=== PATIENT | male | born 1980 | race Two or more races ===

== ENCOUNTER 2024-11-12 06:10 | Emergency (ER) | payer MEDICAID, OTHER ==
[~2024-11-12] VITALS: Ht 172.7 cm; Wt 125.4 kg
[2024-11-12] MEDS ORDERED: HYDR50TA69 PO (06:41)
[2024-11-12] MEDS ORDERED: PRED20TA2 PO (06:41)
[2024-11-12] MEDS: methylPREDNISolone SOD SUCC 125 MG/2 ML VL IM ONE (06:47)
--- NOTE | 2024-11-12 06:48 | ED.PDOC ---
HPI Allergic reaction HPI Comments A 43 YEAR-OLD MALE, WITH A PMHX OF DIVERTICULITIS, PRESENTS TO THE ED WITH A CHIEF COMPLAINT OF RASH TO THE ENTIRE BODY WITH ASSOCIATED ITCHINESS OF 1.5-2 MONTHS. PATIENT REPORTS GOING TO A LOCAL CLINIC FOR DIVERTICULITIS MEDICATION, WITH RASH ONSET SINCE. PATIENT REPORTS RASH WORSENING OF X2 WEEKS AGO AFTER GETTING STEROID INJECTIONS. PATIENT HAS NO FURTHER COMPLAINTS AT THIS TIME AND OTHERWISE DENIES FEVER, CHILLS, HEADACHE, OR N/V/D. PATIENT IS ALERT, ORIENTED X 4, AND HAS STEADY GAIT. Chief Complaint: Rash Time Seen by MD: 06:35 Reviewed Notes: Nurses Notes, Medications, Allergies Allergies: Coded Allergies: Amoxicillin (Verified Allergy, Unknown, 11/12/24) Clavulanic Acid (Verified Allergy, Unknown, 11/12/24) Home Meds Active Scripts Hydroxyzine Hcl (Hydroxyzine Hcl) 50 Mg Tab, 1 TAB PO BID, #30 TAB Prov:CIELO PENA 11/12/24 Prednisone (Prednisone) 20 Mg Tab, 60 MG PO DAILY, #24 TAB Prov:CIELO PENA 11/12/24 Information Source: Patient Mode of Arrival: Ambulatory Severity: Moderate Rash: Moderate SOB: None Difficulty swallowing: None Pruritus: Moderate Timing: Days, Weeks Duration: Since onset Prehospital treatment: None Location: Abdomen, Arm, Back, Buttock, Chest, Generalized, Leg, Other (GROIN ) Modyifying Factors: Not Used Associated Sign and Symptoms: None Past Medical History Past Medical History (Other): DIVERTICULITIS Surgical History: Denies all surgeries Family History Family History: Reviewed,noncontributory to illness, No family hx of Cancer, No family hx of DM, No family hx of Heart mehdi, No family hx of HTN, No family hx ofKidney mehdi, No family hx of Liver mehdi, No family hx of Lung mehdi, No family hx of Stroke Social History Smoker: Non-Smoker Alcohol: Denies ETOH Use Drugs: Denies Drug Use Lives In: Home Constitutional: denies: chills, diaphoresis, fatigue, fever, malaise, sweats, weakness, others EENTM: denies: blurred vision, double vision, ear bleeding, ear discharge, ear drainage, ear pain, ear ringing, eye pain, eye redness, hearing loss, mouth pain, mouth swelling, nasal discharge, nose bleeding, nose congestion, nose pain, photophobia, tearing, throat pain, throat swelling, voice changes, others Respiratory: denies: cough, hemoptysis, orthopnea, SOB at rest, shortness of breath, SOB with excertion, stridor, wheezing, others Cardiovascular: denies: chest pain, dizzy spells, diaphoresis, Dyspnea on exertion, edema, irregular heart beat, left arm pain, lightheadedness, palpitations, PND, syncope, others Gastrointestinal: denies: abdomen distended, abdominal pain, blood streaked bowels, constipated, diarrhea, dysphagia, difficulty swallowing, hematemesis, melena, nausea, poor appetite, poor fluid intake, rectal bleeding, rectal pain, vomiting, others Genitourinary: denies: burning, dysuria, flank pain, frequency, hematuria, incontinence, penile discharge, penile sore, pain, testicle pain, testicle sw elling, urgency, others Neurological: denies: dizziness, fainting, headache, left sided numbness, left sided weakness, numbness, paresthesia, pre-existing deficit, right sided numbness, right sided weakness, seizure, speech problems, tingling, tremors, weakness, others Musculoskeletal: denies: back pain, gout, joint pain, joint swelling, muscle pain, muscle stiffness, neck pain, others Integumetry: reports: rash; denies: bruises, change in color, change in hair/nails, dryness, laceration, lesions, lumps, wounds, others Allergic/Immunocompromised: reports: Hives, Itching, others (RASH ); denies: Difficulty Healing, Frequent Infections Hematologic/Lymphatic: denies: anemia, blood clots, easy bleeding, easy bruising, swollen glands, others Endocrine: denies: excessive hunger, excessive sweating, excessive thirst, excessive urination, flushing, intolerance to cold, intolerance to heat, unexplained weight gain, unexplained weight loss, others Psychiatric: denies: anxiety, bipolar disorder, depression, hopeless, panic disorder, schizophrenia, sleepless, suicidal, others All Other Systems: Reviewed and Negative Physical Exam General Appearance: No Apparent Distress, Obese HEENT: Normal ENT Inspection, PERRL/EOMI, Pharynx Normal, TMs Normal Neck: Full Range of Motion, Non-Tender, Normal, Normal Inspection Respiratory: Chest Non-Tender, Lungs Clear, No Accessory Muscle Use, No Respiratory Distress, Normal Breath Sounds Cardiovascular: No Edema, No JVD, No Murmur, No Gallop, Normal Peripheral Pulses, Regular Rate/Rhythm Breast Exam: Deferred Gastrointestinal: No Organomegaly, Non Tender, No Pulsatile Mass, Normal Bowel Sounds, Soft Genitalia: Deferred Pelvic: Deferred Rectal: Deferred Extremities: No calf tenderness, Normal capillary refill, Normal inspection, Normal range of motion, Non-tender, No pedal edema Musculoskeletal : Apperance: Normal Neurologic: Alert, refrigerator glazier II-XII nml as Tested, No Motor Deficits, Normal Affect, Normal Mood, No Sensory Deficits Cerebellar Function: Normal Reflexes: Normal Skin: Dry, Rash (ERYTHEMA SKIN RASH WITH HIVES ON UPPER AND LOWER BODY REGION, NO TENDERNESS, SWELLING AND DEFORMITY. ), Warm Peripheral Pulses: 2+ carotid (R), 2+ carotid (L) Lymphatic: No Adenopathy Was a procedure done? Was a procedure done?: No Differential diagnosis (all) Differential Diagnosis: Angioedema, Drug Reaction, Urticaria, Other (ALLERGIC REACTION ) X-Ray, Labs, Meds, VS Vital Signs Date Time Temp Pulse Resp B/P (MAP) Pulse Ox O2 Delivery O2 Flow Rate FiO2 11/12/24 06:13 98.2 87 18 137/94 98 98.2 Current Medications Medications (Trade) Dose Ordered Sig/Rashad Route Start Time Stop Time Status Last Admin Methylprednisolone Sodium Succinate (Solu Medrol) 125 mg ONCE ONCE IM 11/12/24 06:45 11/12/24 06:46 DC 11/12/24 06:47 Epinephrine HCl 0.3 mg ONCE ONCE IM 11/12/24 06:45 11/12/24 06:46 DC 11/12/24 06:48 X-Ray, Labs, Meds, VS Comment COURSE: EXTERNAL MEDICAL RECORDS REVIEWED: [NONE] INDEPENDENT HISTORIANS: [NONE] SOCIAL DETERMINANTS OF HEALTH: [NONE] LABS ORDERED: NONE REVIEWED AND INTERPRETED RESULTS: NONE IMAGING ORDERED: NONE TREATMENTS ORDERED: EPINEPHRIN INJECTION 0.3 MG IM AND 125MG SOLU MEDROL PROCEDURES PERFORMED: NONE CRITICAL CARE TIME: NONE I HAVE DISCUSSED THE PATIENT WITH THE ATTENDING PHYSICIAN [[email or web address]] AND HE AGREES WITH THE PATIENT'S PLAN OF CARE AND DISPOSITION. BASED ON HISTORY OF PRESENT ILLNESS, AND PHYSICAL EXAM, PATIENT WILL BE DISCHARGED HOME. DISCUSSED PLAN FOR DISCHARGE HOME WITH RX [[facility]]. MEDICATION WARNINGS GIVEN. SHARED DECISION MAKING: DISCUSSED WITH PATIENT THAT THEIR WORKUP WAS NORMAL. PATIENT INSTRUCTED TO FOLLOW UP WITH PRIMARY CARE PROVIDER IN 1-2 DAYS FOR RE- EVALUATION OF SYMPTOMS. PATIENT VERBALIZES UNDERSTANDING TO RETURN TO ED FOR NEW OR WORSENING SYMPTOMS OR IF FOLLOW UP WITH PCP CANNOT BE OBTAINED. PATIENT FEELS COMFORTABLE GOING HOME AT THIS TIME. ALL QUESTIONS ADDRESSED AT TIME OF DISCHARGE. Images Reviewed?: Images reviewed and evaluated by me Time of 1ST Reevaluation: 07:10 Reevaluation 1ST: Improved Patient Education/Counseling: Diagnosis, Treatment, Need For Follow Up Family Education/Counseling: Diagnosis, Treatment, No Family Present Medical Screening: No EMC Exist At This Time SEPSIS Sepsis Screen Date sepsis recognized/suspect: Nov 12, 2024 Time Sepsis recognized/suspect: 612 Recent Procedure: No On Antibiotic Therapy: Yes Respiratory Rate >20: No Heart Rate >90: No Temp<36 C (96.8 F) or >38.3 C: No SBP <90 or MAP <65 mmHG: No New Acute Mental Status Change: No Is the patient on CPAP, BIPAP,: No Vital Signs Date Time Temp Pulse Resp B/P (MAP) Pulse Ox O2 Delivery O2 Flow Rate FiO2 11/12/24 06:13 98.2 87 18 137/94 98 98.2 Medications Medications Dose Ordered Sig/Rashad Route Start Time Stop Time Status Last Admin Dose Admin Epinephrine HCl 0.3 mg ONCE ONCE IM 11/12/24 06:45 11/12/24 06:46 DC 11/12/24 06:48 Methylprednisolone Sodium Succinate 125 mg ONCE ONCE IM 11/12/24 06:45 11/12/24 06:46 DC 11/12/24 06:47 Departure 1 Departure Time of Disposition: 07:20 Impression: Primary Impression: Allergic reaction Qualified Codes: T78.40XD - Allergy, unspecified, subsequent encounter Additional Impression: Rash due to allergy Disposition: 01 HOME / SELF CARE / HOMELESS Condition: Stable Additional Instructions: F/U PCP IN 2 DAYS RECHECK. IF CONDITION BECOME WORSE, RETURN TO ED WIL. e-Prescriptions Hydroxyzine Hcl (Hydroxyzine Hcl) 50 Mg Tab 1 TAB PO BID, #30 TAB Prov: CIELO PENA 11/12/24 Prednisone (Prednisone) 20 Mg Tab 60 MG PO DAILY, #24 TAB Prov: CIELO PENA 11/12/24 Discharged With: Self Critical Care Note Critical Care Time?: No Stability Stability form required: No Heart Score Heart Score: Heart Score Response (Comments) Value History N/A 0 EKG N/A 0 Age N/A 0 Risk Factors N/A 0 Troponin N/A 0 Total 0 I personally scribed for CIELO PENA ([email or web address]) on 11/12/24 at 06:48. Electronically submitted by Viri Hernandez ([email or web address]). I personally scribed for MELY COCHRAN MD ([email or web address]) on 11/12/24 at 07:28. Electronically submitted by Viri Hernandez ([email or web address]). CIELO PENA Nov 12, 2024 06:48 MELY COCHRAN MD Nov 12, 2024 07:28
[2024-11-12 07:28] VITALS: BP 137/94; PULSE 87; RESP 18; TEMP 98.2; O2SAT 98
== END 2024-11-12 07:28 | disposition home or self-care (01) ==
LOC: ER 06:10
DX: L50.0 Allergic urticaria (principal); Z88.0 Allergy status to penicillin; Z79.52 Long term (current) use of systemic steroids
CPT/HCPCS: 96372; 99284; J0169; J2919

== ENCOUNTER 2025-03-18 20:01 | Inpatient (IN) | payer MEDICAID ==
[~2025-03-18] VITALS: Ht 172.7 cm; Wt 121.9 kg
[~2025-03-18 20:01] MED LIST: HYDR50TA69 PO; PRED20TA2 PO
[2025-03-18 20:53] LABS: Nucleated Red Blood Cells % 0.0 %
[2025-03-18 20:55] LABS: Hematocrit 46.9 % (41.0-53.0); Hemoglobin 15.4 g/dL (13.5-17.5); Mean Corpuscular Hemoglobin 26.6 pg (28.0-32.0); Mean Corpuscular Volume 81.2 fL (80.0-100.0)
[2025-03-18 21:13] LABS: Alanine Aminotransferase 21 U/L (7-40); Albumin 4.3 g/dL (3.2-4.8); Alkaline Phosphatase 113 U/L (46-116); Anion Gap 7 (5-15); BUN/Creatinine Ratio 6.7 (10.0-20.0); Calcium 9.1 mg/dL (8.7-10.4); Carbon Dioxide 27 mmol/L (20-31); Chloride 105 mmol/L (98-107); Potassium 3.8 mmol/L (3.5-5.1); Sodium 139 mmol/L (136-145); Total Protein 7.5 g/dL (5.7-8.2)
[2025-03-18 21:14] LABS: Bilirubin, Total 0.5 mg/dL (0.2-1.0)
[2025-03-18 21:22] LABS: Blood Urea Nitrogen 6 mg/dL (9-23); Glucose 108 mg/dL (74-106)
--- NOTE | 2025-03-18 21:26 | ED.PDOC ---
GI ASSESSMENT HPI Comments 44-year-old male presents to the ED for chief complaint of left-sided abdominal pain associated with constipation. Patient presents with a focal pain on palpation to the left mid axillary region right below the rib cage. Patient states that his last bowel movement was today but states it was minimal. Patient reports the pain as sharp in a feels as if his intestines are going to rupture. He denies any nausea, vomiting, fever, chills, chest pain, or shortness of breath. Pain has been onset and constant for the past 2 3 days. Past medical history: Diverticulitis Past surgical history: Denies Social history: Denies Allergies: Amoxicillin and claviclanic acid HPI: Poor Historian. REVIEW OF SYSTEMS: CONSTITUTIONAL: Denies acute: fever, diaphoresis, chills, HEAD: Denies acute: headache, photophobia Eyes: Denies acute: Double vision, vision loss, eye pain, eye discharge. EARS: Denies acute: tinnitus, hearing loss, ear discharge, ear pain, THROAT: Denies acute: sore throat, swelling, difficulty swallowing , pain with swallowing, change in voice. NECK: Denies acute: neck pain, neck swelling, stiff neck. HEART: Denies acute : chest pain, palpitations, LUNGS: Denies acute: SOB, wheezing, cough, hemoptysis ABDOMEN: Denies acute: Nausea, Vomiting, diarrhea, melena , hematemesis, hematochezia SKIN: Denies acute: rash, redness, lesions, itchiness. EXTREMITIES: Denies acute: calf pain, numbness, tingling, weakness, denies pain in extremity. Denies acute: Low back pain. Neuro: Denies acute: focal neurological deficit, motor or sensory focal neurological deficit, tremors, seizure like activity, confusion, dizziness, change in mental status, loss of bowel or bladder function, cauda equina like symptoms. : Denies acute: dysuria, hematuria, flank pain, increase in urinary frequency. PSYCH: Denies acute: hallucination, suicidal ideation, homicidal ideation. PHYSICAL EXAM: General: ----moderate--acute distress, awake and alert. Head: normocephalic, atraumatic. No raccoon's eyes, no nunez sign. Neck: supple, trachea is midline, no swelling. Throat: Normal phonation. Eyes:, no erythema, no purulent discharge, no proptosis, no icterus. Heart: regular rate, regular rhythm, no significant murmur appreciated. Lungs: no apparent respiratory distress, Able to speak in full sentences. No wheezing, no rhonchi, no crackles. No stridors Clear to auscultation bilaterally. Abdomen: Left upper quadrant and periumbilical tender to palpation, non distended, soft, no guarding, no rebound, + bowel sounds. Neuro: Awake, Alert, oriented to name, self, situation, follows commands GCS=15. Speech is normal. Skin: no petechia, no purpura, no cyanosis, non-pale, not jaundice. Lower extremities: --no - Pitting edema no deformity, no focal swelling, no calf TTP. Makes eye contact. moves all four extremities. Face: no apparent facial droop. No CVA tenderness to percussion bilaterally. ED COURSE: DISCLAIMER: This medical document was created using an electronic medical record system with voice recognition software and computerized dictation system. Although this document has been carefully reviewed, there might still be some phonetic and typographical errors. Occasional wrong-word or "sound-alike" substitutions may have occurred due to the inherent limitations of voice recognition software. These areas are purely typographical due to imperfections of the software p estherramelgin and do not reflect any compromise in the patient's medical care. Please read the chart carefully and recognize, using context, where these substitutions have occurred. Chief Complaint: Abdominal Pain Time Seen by MD: 21:17 Reviewed Notes: Medications, Allergies Allergies: Coded Allergies: Amoxicillin (Verified Allergy, Unknown, 11/12/24) Clavulanic Acid (Verified Allergy, Unknown, 11/12/24) Home Meds Active Scripts Hydroxyzine Hcl (Hydroxyzine Hcl) 50 Mg Tab, 1 TAB PO BID, #30 TAB Prov:CIELO PENA 11/12/24 Prednisone (Prednisone) 20 Mg Tab, 60 MG PO DAILY, #24 TAB Prov:CIELO PENA 11/12/24 Information Source: Patient Mode of Arrival: Wheelchair Timing: Days Duration: Since onset Was a procedure done? Was a procedure done?: No GI differential Dx Differential Diagnosis: Bowel Obstruction, Constipation, Esophageal rupture, Es ophagitis, Gastroenteritis, Viral X-Ray, Labs, Meds, VS Vital Signs Date Time Temp Pulse Resp B/P (MAP) Pulse Ox O2 Delivery O2 Flow Rate FiO2 03/18/25 20:03 97.8 93 18 118/88 96 97.8 Lab Test 03/18/25 20:40 Range/Units White Blood Count 15.6 H 4.4-10.8 10^3/uL Red Blood Count 5.78 4.5-5.90 10^6/uL Hemoglobin 15.4 13.5-17.5 g/dL Hematocrit 46.9 41.0-53.0 % Mean Corpuscular Volume 81.2 80.0-100.0 fL Mean Corpuscular Hemoglobin 26.6 L 28.0-32.0 pg Mean Corpuscular Hemoglobin Concent 32.8 32.0-36.0 g/dL Red Cell Distribution Width 13.8 11.8-14.3 % Platelet Count 455 H 140-450 10^3/uL Mean Platelet Volume 7.6 6.9-10.8 fL Neutrophils (%) (Auto) 74.1 37.0-80.0 % Lymphocytes (%) (Auto) 15.6 10.0-50.0 % Monocytes (%) (Auto) 9.2 0.0-12.0 % Eosinophils (%) (Auto) 0.8 0.0-7.0 % Basophils (%) (Auto) 0.3 0.0-2.0 % Neutrophils # (Auto) 11.5 H 1.6-8.6 10 ^3/uL Lymphocytes # (Auto) 2.4 0.4-5.4 10 ^3/uL Monocytes # (Auto) 1.4 H 0-1.3 10 ^3/uL Eosinophils # (Auto) 0.1 0-0.8 10 ^3/uL Basophils # (Auto) 0 0-0.2 10 ^3/uL Nucleated Red Blood Cells 0.0 % Sodium Level 139 136-145 mmol/L Potassium Level 3.8 3.5-5.1 mmol/L Chloride Level 105 98-107 mmol/L Carbon Dioxide Level 27 20-31 mmol/L Anion Gap 7 5-15 Blood Urea Nitrogen 6 L 9-23 mg/dL Creatinine 0.89 0.700-1.30 mg/dL Glomerular Filtration Rate Calc 108 >90 mL/min BUN/Creatinine Ratio 6.7 L 10.0-20.0 Serum Glucose 108 H 74-106 mg/dL Lactic Acid Level 1.7 0.4-2.0 mmol/L Calcium Level 9.1 8.7-10.4 mg/dL Total Bilirubin 0.5 0.2-1.0 mg/dL Aspartate Amino Transferase (AST) 14 13-40 U/L Alanine Aminotransferase (ALT) 21 7-40 U/L Alkaline Phosphatase 113 46-116 U/L Total Protein 7.5 5.7-8.2 g/dL Albumin 4.3 3.2-4.8 g/dL Time of 1ST Reevaluation: 21:23 Reevaluation 1ST: Unchanged Patient Education/Counseling: Diagnosis, Treatment Family Education/Counseling: No Family Present Departure 1 Departure Time of Disposition: 22:34 Impression: Primary Impression: Diverticulitis Additional Impression: Leukocytosis Disposition: ADMITTED INPATIENT Admit to: [facility] Condition: Guarded Discharged With: Self Critical Care Note Critical Care Time?: No I personally scribed for YAYO PERES DO ([email or web address]) on 03/18/25 at 21:26. Electronically submitted by Shea Crisostomo ([facility]). YAYO PERES DO Mar 18, 2025 21:26
--- NOTE | 2025-03-18 21:41 | DVH ---
EXAM: CT CT AB PEL WO CON-NO ORAL OR IV INDICATION: abd pain, TECHNIQUE: Volumetric multidetector CT images of the abdomen and pelvis were obtained without contrast. All CT scans at this facility use dose modulation, iterative reconstruction, and/or weight based dosing when appropriate to reduce radiation dose to as low as reasonably achievable. COMPARISON: None FINDINGS: [LOWER CHEST]: The partially visualized lung bases are clear without a pleural effusion. The cardiac size is normal without pericardial effusion. [LIVER]: Normal hepatic size without suspicious focal lesion. [GALLBLADDER AND BILIARY TREE]: No cholelithiasis. [SPLEEN]: Unremarkable. [PANCREAS]: Unremarkable. [ADRENAL GLANDS]: Unremarkable [KIDNEYS]: No hydronephrosis. No nephroureterolithiasis. No suspicious focal lesion. [BLADDER]: Unremarkable for the degree distention. [REPRODUCTIVE ORGANS]: Unremarkable. [BOWEL/MESENTERY]: Significant inflammatory stranding along the distal descending colon with the associated diverticula correlate for diverticulitis/colitis. No evidence of microperforation or pericolonic abscess. Stomach is normal. No CT evidence of bowel obstruction. [ASCITES]: No significant ascites. [LYMPHADENOPATHY]: No pathologically enlarged lymph nodes by CT size criteria [VASCULATURE]: No aneurysmal dilatation. [ABDOMINAL WALL]: Unremarkable. [MUSCULOSKELETAL]: No acute fracture or aggressive focal osseous lesion. IMPRESSION: 1. Significant inflammatory stranding along the distal descending colon with the associated diverticula correlate for diverticulitis/colitis. 2. No evidence of microperforation or pericolonic abscess.
[2025-03-18] MEDS: CIPROFLOXACIN 400MG/200ML 200 ML IV ONE (23:23)
[2025-03-18] MEDS: SODIUM CHLORIDE 0.9% 1,000 ML IV ONE (23:23)
[2025-03-19] VITALS (7 sets, daily range): BP systolic 107–115; BP diastolic 71–79; PULSE 68–88; RESP 16–20; TEMP 97.9–98.7; O2SAT 94–98
[2025-03-19 00:12] LABS: Urine Protein, UAD Negative (Negative)
[2025-03-19] MEDS: fentaNYL CITRATE 100 MCG/2 ML VL IV ONE (00:15)
[2025-03-19 01:16] LABS: Amphetamine Screen, Urine Neg (NEGATIVE); Barbiturate Scree,Urine Neg (NEGATIVE); Benzodiazephine Screen, Urine Neg (NEGATIVE); Cannabinoid Screen, Urine Neg (NEGATIVE); Cocaine Screen, Urine Neg (NEGATIVE); Opiate Scree,Urine Neg (NEGATIVE); Phencyclidine Screen, Urine Neg (NEGATIVE)
--- NOTE | 2025-03-19 03:08 | DVHHP2 ---
History of Present Illness History of Present Illness 44-year-old male with a history of recurrent diverticular disease presenting with 23 days of left-sided abdominal pain associated with constipation. No reported nausea or vomiting. He has had prior similar episodes and was previously treated as an outpatient with ciprofloxacin and metronidazole in November. Due to persistent pain and leukocytosis, he will be admitted CT abdomen/pelvis demonstrated significant inflammatory stranding along the distal descending colon with associated diverticula, consistent with acute diverticulitis versus colitis. PMHx: Diverticular disease PSHx: Not reported Medications: Hydroxyzine, prednisone Allergies: Amoxicillin-clavulanate Social History: Not reported ROS: Negative except as per HPI Labs: WBC 15.6, CMP within normal limits Imaging: CT abdomen/pelvis: Significant inflammatory stranding along distal descending colon with associated diverticula, concerning for acute diverticulitis versus colitis Review of Systems Allergies: Coded Allergies: Amoxicillin (Verified Allergy, Unknown, 11/12/24) Clavulanic Acid (Verified Allergy, Unknown, 11/12/24) Medications Current Medications Medications Dose Ordered Sig/Rashad Route Start Time Stop Time Status Last Admin Dose Admin Sodium Chloride 1,000 ml @ 90 mls/hr Q11H7M IV 03/19/25 03:15 Acetaminophen 650 mg Q6HP PRN PO 03/19/25 03:15 Ciprofloxacin 200 ml @ 200 mls/hr Q8HR IV 03/19/25 06:00 Metronidazole 100 ml @ 100 mls/hr Q8HR IV 03/19/25 06:00 Ketorolac Tromethamine 15 mg Q6HPRN PRN IV 03/19/25 03:15 03/24/25 03:14 Exam Vital Signs Vital Signs Date Time Temp Pulse Resp B/P (MAP) Pulse Ox O2 Delivery O2 Flow Rate FiO2 03/19/25 01:56 78 18 97 Room Air* 0 21 03/19/25 01:56 98.1 120/80 (93) 98.1 Exam General: Alert, no acute distress Abdomen: Soft, left lower quadrant tenderness, no rebound or guarding, non- distended CV: Regular rhythm Resp: Clear bilaterally Neuro: No focal deficits Labs/Xrays Labs Test 03/18/25 22:36 03/18/25 20:40 Range/Units Urine Color Yellow Yellow Urine Clarity Clear Clear Urine pH 5.0 5.0-9.0 Urine Specific [place] 1.022 1.001-1.035 Urine Protein Negative Negative Urine Ketones Trace Negative Urine Blood 1+ H Negative /uL Urine Nitrite Negative Negative Urine Bilirubin Negative Negative Urine Urobilinogen Normal Negative mg/dL Urine Leukocyte Esterase Negative Negative /uL Urine RBC 1 0 - 3 /hpf Urine Microscopic WBC < 1 0-3 /HPF Urine Squamous Epithelial Cells None seen <5 /hpf Urine Bacteria None seen None Seen /hpf Urine Mucus Few None Seen Urine Glucose Normal Normal mg/dL Urine Opiates Screen Neg NEGATIVE Urine Fentanyl Screen Neg NEGATIVE Urine Barbiturates Screen Neg NEGATIVE Urine Phencyclidine Screen Neg NEGATIVE Urine Amphetamines Screen Neg NEGATIVE Urine Benzodiazepines Screen Neg NEGATIVE Urine Cocaine Screen Neg NEGATIVE Urine Cannabinoids Screen Neg NEGATIVE White Blood Count 15.6 H 4.4-10.8 10^3/uL Red Blood Count 5.78 4.5-5.90 10^6/uL Hemoglobin 15.4 13.5-17.5 g/dL Hematocrit 46.9 41.0-53.0 % Mean Corpuscular Volume 81.2 80.0-100.0 fL Mean Corpuscular Hemoglobin 26.6 L 28.0-32.0 pg Mean Corpuscular Hemoglobin Concent 32.8 32.0-36.0 g/dL Red Cell Distribution Width 13.8 11.8-14.3 % Platelet Count 455 H 140-450 10^3/uL Mean Platelet Volume 7.6 6.9-10.8 fL Neutrophils (%) (Auto) 74.1 37.0-80.0 % Lymphocytes (%) (Auto) 15.6 10.0-50.0 % Monocytes (%) (Auto) 9.2 0.0-12.0 % Eosinophils (%) (Auto) 0.8 0.0-7.0 % Basophils (%) (Auto) 0.3 0.0-2.0 % Neutrophils # (Auto) 11.5 H 1.6-8.6 10 ^3/uL Lymphocytes # (Auto) 2.4 0.4-5.4 10 ^3/uL Monocytes # (Auto) 1.4 H 0-1.3 10 ^3/uL Eosinophils # (Auto) 0.1 0-0.8 10 ^3/uL Basophils # (Auto) 0 0-0.2 10 ^3/uL Nucleated Red Blood Cells 0.0 % Sodium Level 139 136-145 mmol/L Potassium Level 3.8 3.5-5.1 mmol/L Chloride Level 105 98-107 mmol/L Carbon Dioxide Level 27 20-31 mmol/L Anion Gap 7 5-15 Blood Urea Nitrogen 6 L 9-23 mg/dL Creatinine 0.89 0.700-1.30 mg/dL Glomerular Filtration Rate Calc 108 >90 mL/min BUN/Creatinine Ratio 6.7 L 10.0-20.0 Serum Glucose 108 H 74-106 mg/dL Lactic Acid Level 1.7 0.4-2.0 mmol/L Calcium Level 9.1 8.7-10.4 mg/dL Total Bilirubin 0.5 0.2-1.0 mg/dL Aspartate Amino Transferase (AST) 14 13-40 U/L Alanine Aminotransferase (ALT) 21 7-40 U/L Alkaline Phosphatase 113 46-116 U/L Total Protein 7.5 5.7-8.2 g/dL Albumin 4.3 3.2-4.8 g/dL SEPSIS Sepsis Screen Date sepsis recognized/suspect: Mar 19, 2025 Time Sepsis recognized/suspect: 0158 Recent Procedure: No On Antibiotic Therapy: No Respiratory Rate >20: No Heart Rate >90: No Temp<36 C (96.8 F) or >38.3 C: No SBP <90 or MAP <65 mmHG: No New Acute Mental Status Change: No Is the patient on CPAP, BIPAP,: No Physician Orders Quality Associate (03/18/25 ) Ct Ab Pel Wo Con-No Oral Or Iv (03/18/25 20:33) Admit (03/19/25 03:01) Code Status (03/19/25 03:01) Vital Signs .PER UNIT PROTOCOL (03/19/25 03:01) Review Orders With Adm. (03/19/25 03:01) Npo (Nothing By Mouth) Diet (03/19/25 Breakfast) Sodium Chloride 0.9% (03/19/25 03:15) Acetaminophen Tablet (Tylenol Tablet) (03/19/25 03:15) Notify Md Of Changes From Base (03/19/25 03:01) Advance Directive (03/19/25 03:01) Patient Condition (03/19/25 03:01) Allergies (03/19/25 03:01) Oxygen By Nasal Cannula (03/19/25 03:01) Stat Ekg For Chest Pain (03/19/25 03:01) Notify Of Changes From Base (03/19/25 03:01) House Painter Helper For 24 Hours (03/19/25 03:01) Emergency Dysrhythmia Protocol (03/19/25 03:01) Rhythm Strips Once Every Shift (03/19/25 03:01) Ciprofloxacin 400mg/200ml (Cipro Iv) (03/19/25 06:00) Metronidazole 500mg/100ml (Flagyl 500mg/ (03/19/25 06:00) Ketorolac Injection (Toradol Injection) (03/19/25 03:15) Vital Signs Date Time Temp Pulse Resp B/P (MAP) Pulse Ox O2 Delivery O2 Flow Rate FiO2 03/19/25 01:56 78 18 97 Room Air* 0 21 03/19/25 01:56 98.1 78 18 120/80 (93) 97 98.1 03/18/25 23:18 98.8 102 18 119/85 (96) 95 98.8 03/18/25 20:03 97.8 93 18 118/88 96 97.8 Laboratory Tests Test 03/18/25 20:40 Lactic Acid Level 1.7 mmol/L (0.4-2.0) White Blood Count 15.6 10^3/uL (4.4-10.8) H Medications Medications Dose Ordered Sig/Rashad Route Start Time Stop Time Status Last Admin Dose Admin Ciprofloxacin 200 ml @ 200 mls/hr ONCE ONCE IV 03/18/25 22:45 03/18/25 23:44 DC 03/18/25 23:23 200 MLS/HR Metronidazole 100 ml @ 100 mls/hr ONCE ONCE IV 03/18/25 22:45 03/18/25 23:44 DC 03/18/25 22:45 100 MLS/HR Sodium Chloride 1,000 ml @ 1,000 mls/hr Q1H ONCE IV 03/18/25 22:45 03/18/25 23:44 DC 03/18/25 23:23 1,000 MLS/HR Assessment/Plan Assessment/Plan #Sepsis due to Acute diverticulitis Admit, NPO initially, IV fluids for hydration, start IV ciprofloxacin and metronidazole given beta-lactam allergy, bowel rest, avoid stimulant laxatives during acute phase, monitor abdominal exam and WBC trend, advance diet to clear liquids then low-fiber diet as symptoms improve, no procedural intervention indicated at this time unless clinical deterioration or concern for abscess/perforation Case discussed with Dr Lara Full code Plan discussed with: Patient, Other (rn) My Orders Orders - EFRA BERRIOS Procedure Category Date Status Time Admit ADMIT 03/19/25 Transmitted 03:01 Code Status CODE 03/19/25 Transmitted 03:01 Vital Signs [facility] 03/19/25 In Process 03:01 Review Orders With [facility] 03/19/25 In Process Adm.Md 03:01 Npo (Nothing By DIET 03/19/25 Transmitted Mouth) Diet Breakfast Sodium Chloride 0.9% PHA 03/19/25 In Process 03:15 Acetaminophen Tablet [facility] 03/19/25 In Process (Tylenol Tablet) 03:15 Notify Md Of Changes [facility] 03/19/25 In Process From Base 03:01 Advance Directive [facility] 03/19/25 In Process 03:01 Patient Condition ORDERS 03/19/25 Transmitted 03:01 Allergies [facility] 03/19/25 In Process 03:01 Oxygen By Nasal RT 03/19/25 Transmitted Cannula 03:01 Stat Ekg For Chest [facility] 03/19/25 In Process Pain 03:01 Notify Md Of Changes [facility] 03/19/25 In Process From Base 03:01 House Painter Helper For [facility] 03/19/25 In Process 24 Hours 03:01 Emergency Dysrhythmia [facility] 03/19/25 In Process Protocol 03:01 Rhythm Strips Once [facility] 03/19/25 In Process Every Shift 03:[address] [facility] 03/19/25 In Process 400mg/200ml (Cipro Iv) 06:00 Metronidazole PHA 03/19/25 In Process 500mg/100ml (Flagyl 06:00 Ketorolac Injection [facility] 03/19/25 In Process (Toradol Injection) 03:15 Date of Service: Mar 19, 2025 Billing Provider: ANSELMO LARA MD Common Visit Codes: [id number] INP/OBS CARE (HIGH) Secondary Visit Codes: [id number] CARE PLAN 30 MINUTES EFRA BERRIOS Mar 19, 2025 03:08
[2025-03-19] MEDS: SODIUM CHLORIDE 0.9% 1,000 ML IV SCH (03:15)
[2025-03-19] MEDS ORDERED: ACETAMINOPHEN 325 MG TAB PO PRN (03:15)
[2025-03-19] MEDS: CIPROFLOXACIN 400MG/200ML 200 ML IV SCH (05:16)
[2025-03-19 05:45] LABS: Hematocrit 43.6 % (41.0-53.0); Hemoglobin 14.3 g/dL (13.5-17.5); Mean Corpuscular Hemoglobin 26.4 pg (28.0-32.0); Mean Corpuscular Volume 80.3 fL (80.0-100.0); Nucleated Red Blood Cells % 0.0 %
[2025-03-19 06:03] LABS: Alanine Aminotransferase 16 U/L (7-40); Albumin 3.7 g/dL (3.2-4.8); Alkaline Phosphatase 92 U/L (46-116); Anion Gap 8 (5-15); BUN/Creatinine Ratio 9.1 (10.0-20.0); Bilirubin, Total 0.7 mg/dL (0.2-1.0); Carbon Dioxide 27 mmol/L (20-31); Chloride 105 mmol/L (98-107); Glucose 97 mg/dL (74-106); Potassium 3.7 mmol/L (3.5-5.1); Sodium 140 mmol/L (136-145); Total Protein 6.5 g/dL (5.7-8.2)
[2025-03-19 06:05] LABS: Blood Urea Nitrogen 6 mg/dL (9-23); Calcium 8.4 mg/dL (8.7-10.4)
[2025-03-19] MEDS ORDERED: FAMO20TA10 PO (09:47)
[2025-03-19] MEDS ORDERED: MORPHINE SULFATE INJ 2 MG/ml SYRG IV PRN (15:30)
[2025-03-20] VITALS (8 sets, daily range): BP systolic 102–122; BP diastolic 73–85; PULSE 60–96; RESP 16–19; TEMP 97.7–98.3; O2SAT 74–98
[2025-03-20] MEDS: ENOXAPARIN SOD 40 MG/0.4 ML SYRINGE SC SCH (09:45)
[2025-03-20] MEDS ORDERED: PANTOPRAZOLE 40 MG/10 ML VIAL INJ IV SCH (10:00)
[2025-03-20] MEDS: KETOROLAC TROMETH 30 MG/ML 1ML VIAL IV PRN (10:05)
--- NOTE | 2025-03-20 10:41 | DVHPNRES ---
Progress Note Date Seen: Mar 20, 2025 Resident Creating Document: JANIE KAN RESIDENT Medical Necessity Reason Pt with a Central, PICC or Fol: No Subjective Review of Systems Patient is 44 years old male with a past medical history of diverticular disease came with a complaint of abdominal pain. As per patient he has been having conservatively Thursday and started having pain in the abdomen in the left middle quadrant, 9/10, constant, sharp in nature, increased with movement. Patient denied any nausea or vomiting or fever. No history of endoscopy or colonoscopy before. Initial lab workup revealed leukocytosis with WBC 15.6,, urinalysis negative for UTI, UDS negative, the abdomen and pelvisSignificant inflammatory stranding along the distal descending colon with the associated diverticula correlate for diverticulitis/colitis PMH-diverticulitis PSH- none Allergy- amoxicillin, clavulanic acid Personal History/ Social History- denies all, lives with the ROS Cardiovascular- deny acute chest pain or shortness of breath or cough or palpitation Respiratory denies cough or short of breath or wheezing Gastrointestinal- denies any rectal bleeding, nausea or vomiting Musculoskeletal-denies acute joint swelling or tenderness or redness Neurological- denies acute dysarthria, dysphagia, change in vision Psychiatry- denies depression or SI or HI Skin- denies acute rash or purpura Patient was seen today at bedside Labs and chart reviewed Patient reported pain is improved Patient is on clear liquid diet On ceftriaxone and metronidazole Objective vital signs Vital Sign Date Time Temp Pulse Resp B/P (MAP) Pulse Ox O2 Delivery O2 Flow Rate FiO2 03/20/25 09:00 97.7 78 16 116/83 (94) 97 97.7 03/19/25 20:00 Room Air* 0 21 Total Intake and Output 03/19/25 03/19/25 03/20/25 15:00 23:00 07:00 Intake Total 200 ml 700 ml Output Total 700 ml 1550 ml Balance -700 ml -1350 ml 700 ml medications Current Medications Medications Dose Ordered Sig/Rashad Route Start Time Stop Time Status Last Admin Dose Admin Sodium Chloride 1,000 ml @ 90 mls/hr Q11H7M IV 03/19/25 03:15 03/19/25 04:34 90 MLS/HR Acetaminophen 650 mg Q6HP PRN PO 03/19/25 03:15 Metronidazole 100 ml @ 100 mls/hr Q8HR IV 03/19/25 06:00 03/20/25 05:02 100 MLS/HR Ketorolac Tromethamine 15 mg Q6HPRN PRN IV 03/19/25 03:15 03/24/25 03:14 03/20/25 10:05 15 MG Morphine Sulfate 1 mg Q4HP PRN IV 03/19/25 15:30 Hold Ceftriaxone Sodium 50 ml @ 100 mls/hr DAILY@09 IV 03/21/25 09:00 Enoxaparin Sodium 40 mg DAILY SC 03/20/25 09:45 UNV Famotidine 20 mg DAILY PO 03/20/25 10:00 UNV Examination General examination- awake, HEENT- PEERLA, no acute nasal discharge Cardiovascular- S1-S2 audible, rate and rhythm regular, no murmur Respiratory- CTAB, no wheeze or rhonchi Gastrointestinal-left mid quadrant tender on palpitation, bowel sound+. Nondistended Musculoskeletal-no acute joint swelling or tenderness or redness Lower extremity- no leg edema Neurological- cranial nerves intact, no acute dysarthria or dysphagia Psychiatry- denies depression or SI or HI Skin- no acute rash or purpura laboratory and microbiology Laboratory Tests 03/19/25 05:00 Test 03/19/25 05:00 Range/Units Serum Glucose 97 74-106 mg/dL Problem List/Assessment/Plan Problem List/Assessment/Plan Assessment and plan # suspected sepsis likely due to diverticulitis/colitis # acute intractable abdominal pain likely due to diverticulitis/colitis -intractable abdominal pain likely due to above -clear liquid diet -continue ceftriaxone and metronidazole as prescribed -avoid constipation -continue IV fluid as prescribed # obesity, BMI 40.5 -patient was counseled about healthy lifestyle # vitamin-D deficiency Continue supplement as prescribed Goals of care, Code status full code ; discussed with >15 minutes PUD prophylaxis: Famotidine DVT prophylaxis: Lovenox Plan discussed with Dr. Arrieta , nursing staff, Total time spent on patient evaluation, chart review, assessment and plan, discussion discussion >35 minutes Plan discussed with: Patient (RN), Other My Orders My Orders Orders - JANIE KAN RESIDENT Procedure Category Date Status Time Ceftriaxone 1gm/50ml PHA 03/21/25 In Process (Rocephin) 09:00 Hemoglobin A1c LAB 03/21/25 Verified 04:00 Enoxaparin Sodium PHA 03/20/25 Logged (Lovenox) 09:45 Famotidine Tablet PHA 03/20/25 Logged (Pepcid Tablet) 10:00 Visit Coding STANDARD RES Billing Provider: STARR RYAN MD Date of Service if different f: Mar 20, 2025 Common Visit Codes: [id number] INP/OBS CARE(HIGH) JANIE KAN RESIDENT Mar 20, 2025 10:41
[2025-03-20] MEDS: DOCUSATE SOD 100 MG CAP PO SCH (12:32)
[2025-03-20] MEDS: FAMOTIDINE 20 MG TAB PO SCH (12:32)
[2025-03-20] MEDS: ERGOCALCIFEROL 50,000 UNIT(1.25MG) CAP PO SCH (12:32)
[2025-03-20] MEDS ORDERED: ERGOCALCIFEROL 50,000 UNIT(1.25MG) CAP PO SCH (14:00)
[2025-03-21 01:00] VITALS: BP 112/80; PULSE 70; RESP 16; TEMP 97.6; O2SAT 93
[2025-03-21 05:00] VITALS: BP 117/76; PULSE 71; RESP 16; TEMP 98; O2SAT 97
[2025-03-21 07:48] LABS: Hemoglobin 15.5 g/dL (13.5-17.5); Nucleated Red Blood Cells % 0.1 %
[2025-03-21 07:51] LABS: Hematocrit 47.2 % (41.0-53.0); Mean Corpuscular Hemoglobin 26.8 pg (28.0-32.0); Mean Corpuscular Volume 81.5 fL (80.0-100.0)
[2025-03-21 08:00] VITALS: PULSE 66; RESP 18; O2SAT 98
[2025-03-21 08:02] LABS: Carbon Dioxide 27 mmol/L (20-31)
[2025-03-21 08:03] LABS: Anion Gap 10 (5-15); Calcium 9.2 mg/dL (8.7-10.4); Chloride 104 mmol/L (98-107); Potassium 3.8 mmol/L (3.5-5.1); Sodium 141 mmol/L (136-145)
[2025-03-21 08:08] LABS: BUN/Creatinine Ratio 6.5 (10.0-20.0); Glucose 79 mg/dL (74-106)
[2025-03-21 08:09] LABS: Magnesium 2.1 mg/dL (1.6-2.6)
[2025-03-21 08:22] LABS: Blood Urea Nitrogen 5 mg/dL (9-23)
[2025-03-21 08:30] VITALS: BP 130/87; PULSE 66; RESP 15; TEMP 98.1; O2SAT 95
[2025-03-21] MEDS ORDERED: AUG875T PO (09:28)
[2025-03-21] MEDS ORDERED: KETO10TA PO (09:31)
[2025-03-21 10:01] VITALS: BP 117/76; PULSE 71; RESP 16; TEMP 98; O2SAT 97
[2025-03-21] MEDS ORDERED: DOXY1CAP58 PO (14:08)
[2025-03-21] MEDS ORDERED: ERGO1CAP23 PO (14:08)
--- NOTE | 2025-03-21 15:29 | DVHDSRES ---
Discharge Summary Date of Admission Resident Creating Document: JANIE KAN RESIDENT Mar 19, 2025 at 03:01 Date of Discharge: Mar 21, 2025 Admitting Diagnosis Acute intractable abdominal pain likely due to diverticulitis Labs/Diagnostic Data: Laboratory Results Test 03/21/25 06:43 03/20/25 09:13 03/19/25 05:00 03/18/25 22:36 White Blood Count 9.5 10^3/uL (4.4-10.8) Red Blood Count 5.80 10^6/uL (4.5-5.90) Hemoglobin 15.5 g/dL (13.5-17.5) Hematocrit 47.2 % (41.0-53.0) Mean Corpuscular Volume 81.5 fL (80.0-100.0) Mean Corpuscular Hemoglobin 26.8 pg (28.0-32.0) Mean Corpuscular Hemoglobin Concent 32.8 g/dL (32.0-36.0) Red Cell Distribution Width 13.5 % (11.8-14.3) Platelet Count 426 10^3/uL (140-450) Mean Platelet Volume 8.2 fL (6.9-10.8) Neutrophils (%) (Auto) 68.9 % (37.0-80.0) Lymphocytes (%) (Auto) 20.5 % (10.0-50.0) Monocytes (%) (Auto) 8.8 % (0.0-12.0) Eosinophils (%) (Auto) 1.4 % (0.0-7.0) Basophils (%) (Auto) 0.4 % (0.0-2.0) Neutrophils # (Auto) 6.5 10 ^3/uL (1.6-8.6) Lymphocytes # (Auto) 1.9 10 ^3/uL (0.4-5.4) Monocytes # (Auto) 0.8 10 ^3/uL (0-1.3) Eosinophils # (Auto) 0.1 10 ^3/uL (0-0.8) Basophils # (Auto) 0 10 ^3/uL (0-0.2) Nucleated Red Blood Cells 0.1 % Sodium Level 141 mmol/L (136-145) Potassium Level 3.8 mmol/L (3.5-5.1) Chloride Level 104 mmol/L (98-107) Carbon Dioxide Level 27 mmol/L (20-31) Anion Gap 10 (5-15) Blood Urea Nitrogen 5 mg/dL (9-23) Creatinine 0.77 mg/dL (0.700-1.30) Glomerular Filtration Rate Calc 113 mL/min (>90) BUN/Creatinine Ratio 6.5 (10.0-20.0) Serum Glucose 79 mg/dL (74-106) Hemoglobin A1c 5.6 % A1C (<5.7) Calcium Level 9.2 mg/dL (8.7-10.4) Magnesium Level 2.1 mg/dL (1.6-2.6) C-Reactive Protein High Sensitivity 3.73 mg/dL (<1.0) Vitamin B12 Level 429 pg/mL (211-911) Vitamin D 25-Hydroxy 27.2 ng/mL (30.0-100) Folic Acid 12.35 ng/mL (>5.38) Total Bilirubin 0.7 mg/dL (0.2-1.0) Aspartate Amino Transferase (AST) 13 U/L (13-40) Alanine Aminotransferase (ALT) 16 U/L (7-40) Alkaline Phosphatase 92 U/L (46-116) Total Protein 6.5 g/dL (5.7-8.2) Albumin 3.7 g/dL (3.2-4.8) Urine Color Yellow (Yellow) Urine Clarity Clear (Clear) Urine pH 5.0 (5.0-9.0) Urine Specific [place] 1.022 (1.001-1.035) Urine Protein Negative (Negative) Urine Ketones Trace (Negative) Urine Blood 1+ /uL (Negative) Urine Nitrite Negative (Negative) Urine Bilirubin Negative (Negative) Urine Urobilinogen Normal mg/dL (Negative) Urine Leukocyte Esterase Negative /uL (Negative) Urine RBC 1 /hpf (0 - 3) Urine Microscopic WBC < 1 /HPF (0-3) Urine Squamous Epithelial Cells None seen /hpf (<5) Urine Bacteria None seen /hpf (None Seen) Urine Mucus Few (None Seen) Urine Glucose Normal mg/dL (Normal) Urine Opiates Screen Neg (NEGATIVE) Urine Fentanyl Screen Neg (NEGATIVE) Urine Barbiturates Screen Neg (NEGATIVE) Urine Phencyclidine Screen Neg (NEGATIVE) Urine Amphetamines Screen Neg (NEGATIVE) Urine Benzodiazepines Screen Neg (NEGATIVE) Urine Cocaine Screen Neg (NEGATIVE) Urine Cannabinoids Screen Neg (NEGATIVE) Test 03/18/25 20:40 Lactic Acid Level 1.7 mmol/L (0.4-2.0) Other Laboratory Tests 03/21/25 06:43 Brief Hx & Hospital Course: Patient is 44 years old male with a past medical history of diverticular disease came with a complaint of abdominal pain. As per patient he has been having conservatively Thursday and started having pain in the abdomen in the left middle quadrant, 9/10, constant, sharp in nature, increased with movement. Patient denied any nausea or vomiting or fever. No history of endoscopy or colonoscopy before. Initial lab workup revealed leukocytosis with WBC 15.6,, urinalysis negative for UTI, UDS negative, the abdomen and pelvisSignificant inflammatory stranding along the distal descending colon with the associated diverticula correlate for diverticulitis/colitis Hospital course-during hospital course patient was treated conservatively with IV antibiotic ceftriaxone and metronidazole and IV fluid. Patient initially was clear liquid diet advanced to full liquid diet as tolerated. Patient was adamant about going home today. Patient was advised to continue full liquid diet for 7-10 days then gradually advanced as tolerated. Patient is being discharged with Augmentin. Patient was advised to follow up at [facility]/PCP/customer service driver. Patient was hemodynamically stable on discharge. All questions answered. General examination- awake, HEENT- PEERLA, no acute nasal discharge Cardiovascular- S1-S2 audible, rate and rhythm regular, no murmur Respiratory- CTAB, no wheeze or rhonchi Gastrointestinal-nontender, bowel sound+. Nondistended Musculoskeletal-no acute joint swelling or tenderness or redness Lower extremity- no leg edema Neurological- cranial nerves intact, no acute dysarthria or dysphagia Psychiatry- denies depression or SI or HI Skin- no acute rash or purpura Assessment # suspected sepsis likely due to diverticulitis/colitis # acute intractable abdominal pain likely due to diverticulitis/colitis # obesity, BMI 40.5 # vitamin-D deficiency Plan [facility] PCP Dam Operator Augmentin as prescribed Plan of care discussed with Dr. Arrieta Operations or Procedures [address] [address] Ph: [phone] DIAGNOSTIC IMAGING Diagnostic Imaging Report : [id number] Signed PATIENT: JUANCARLOS BILLACCT: [id number] UNIT: [id number] : 1980 LOC: ER ROOM / BED: / AGE / SEX: 44 / M ADM STATUS: REG ER SERVICE 32 ORDERING PHYSICIAN: YAYO PERES DO PROCEDURE(s): ABPL - CT AB PEL WO CON-NO ORAL OR IV REASON: abd pain, ORDER NUMBER(s): [id number], ACCESSION NUMBER(s): [id number] EXAM: CT CT AB PEL WO CON-NO ORAL OR IV INDICATION: abd pain, TECHNIQUE: Volumetric multidetector CT images of the abdomen and pelvis were obtained without contrast. All CT scans at this facility use dose modulation, iterative reconstruction, and/or weight based dosing when appropriate to reduce radiation dose to as low as reasonably achievable. COMPARISON: None FINDINGS: [LOWER CHEST]: The partially visualized lung bases are clear without a pleural effusion. The cardiac size is normal without pericardial effusion. [LIVER]: Normal hepatic size without suspicious focal lesion. [GALLBLADDER AND BILIARY TREE]: No cholelithiasis. [SPLEEN]: Unremarkable. [PANCREAS]: Unremarkable. [ADRENAL GLANDS]: Unremarkable [KIDNEYS]: No hydronephrosis. No nephroureterolithiasis. No suspicious focal lesion. [BLADDER]: Unremarkable for the degree distention. [REPRODUCTIVE ORGANS]: Unremarkable. [BOWEL/MESENTERY]: Significant inflammatory stranding along the distal descending colon with the associated diverticula correlate for diverticulitis/colitis. No evidence of microperforation or pericolonic abscess. Stomach is normal. No CT evidence of bowel obstruction. [ASCITES]: No significant ascites. [LYMPHADENOPATHY]: No pathologically enlarged lymph nodes by CT size criteria [VASCULATURE]: No aneurysmal dilatation. [ABDOMINAL WALL]: Unremarkable. [MUSCULOSKELETAL]: No acute fracture or aggressive focal osseous lesion. IMPRESSION: 1. Significant inflammatory stranding along the distal descending colon with the associated diverticula correlate for diverticulitis/colitis. 2. No evidence of microperforation or pericolonic abscess. ATED BY: JW SCHOFIELD MD DICTATED DATE/TIME: 03/18/252138 SIGNED BY: JW SCHOFIELD MD SIGNED DATE/TIME: 03/18/252138 CC: Condition at Discharge: Stable Final Diagnosis/Problems List # suspected sepsis likely due to diverticulitis/colitis # acute intractable abdominal pain likely due to diverticulitis/colitis # obesity, BMI 40.5 # vitamin-D deficiency Discharge Disposition: Home Discharge Instruct/Medications Diet: See Comment Diet comment: Full liquid diet for 7-10 days, then advance as tolerated from soft to regular as tolerated Activity: No Restrictions, As Tolerated Follow Up/Referral: [facility] clinic PCP Gastroenterology Medications: As per EMR Scheduled Amoxicillin & Pot Clavulanate (Augmentin Tablet), 875 MG PO BID Ergocalciferol (Vitamin D 94257 Unit), 50,000 UNIT PO QWEEKLY Famotidine (Pepcid Tablet), 1 TAB PO DAILY, (Reported) Hydroxyzine Hcl (Hydroxyzine Hcl), 1 TAB PO BID Prednisone (Prednisone), 60 MG PO DAILY Scheduled PRN Ketorolac Tromethamine (Ketorolac Tromethamine), 1 TAB PO TID PRN Discharge Statement: "Patient was advised to return to the ER or call 911 if any headaches, dizziness, shortness of breath, chest pain, abdominal pain, bleeding, fevers, or worsening of medical condition. Patient was counseled about treatment plan, medications, possible side effects, patientverbalized understanding. All questions were answered to the best of my ability. This discharge took greater then 30 minutes in planning, reviewing documentation, counseling the patient, and discussing with other team members." ASSESSMENT ASSESSMENT Assessment # suspected sepsis likely due to diverticulitis/colitis # acute intractable abdominal pain likely due to diverticulitis/colitis Visit Coding STANDARD RES Billing Provider: STARR RYAN MD Date of Service if different f: Mar 21, 2025 Common Visit Codes: 53165-UUG/OBS DISCH DAY >30min JANIE KAN RESIDENT Mar 21, 2025 15:29 PINKY GUZMAN RESIDENT Mar 21, 2025 17:12
== END 2025-03-21 10:40 | disposition home or self-care (01) | DRG 720 ==
LOC: ER 20:01 → OVERFLOW 03-19 03:01 → WEST WING 03-19 17:55
PROVIDERS: ADMIT Student in an Organized Health Care Education/Training Program; ATTEND Student in an Organized Health Care Education/Training Program
DX: A41.9 Sepsis, unspecified organism (principal); A09 Infectious gastroenteritis and colitis, unspecified; K57.32 Diverticulitis of large intestine without perforation or abscess without bleeding; Z68.41 Body mass index [BMI] 40.0-44.9, adult; E55.9 Vitamin D deficiency, unspecified; K59.00 Constipation, unspecified; E66.9 Obesity, unspecified; Z88.1 Allergy status to other antibiotic agents; Z88.0 Allergy status to penicillin; Z79.899 Other long term (current) drug therapy
CPT/HCPCS: 36415; 74176; 80048; 80053; 80307; 81001; 82306; 82607; 82746; 83036; 83605; 83735; 85025; 86141; 96365; G0378; J1885; J3490